=== PATIENT | female | born 1970 | race Caucasian/White ===

== ENCOUNTER 2024-09-26 16:57 | Emergency (ER) | payer MEDICARE ==
[~2024-09-26] VITALS: Ht 165.1 cm; Wt 75.7 kg
[2024-09-26 17:02] VITALS: PULSE 80; RESP 17; TEMP 98.3; O2SAT 98
[2024-09-26] MEDS ORDERED: ONDANSETRON ODT4 MG PO (17:55)
== END 2024-09-26 18:08 | disposition home or self-care (01) ==
LOC: ER 17:09
DX: Z43.6 Encounter for attention to other artificial openings of urinary tract (principal); R10.9 Unspecified abdominal pain; R11.0 Nausea; I10 Essential (primary) hypertension; E11.9 Type 2 diabetes mellitus without complications; K21.9 Gastro-esophageal reflux disease without esophagitis; Z87.442 Personal history of urinary calculi
CPT/HCPCS: 99283